=== PATIENT | male | born 1980 | race Caucasian/White ===

== ENCOUNTER 2018-09-05 14:00 | Emergency (ER) | payer OTHER ==
[~2018-09-05] VITALS: Ht 177.8 cm; Wt 95.5 kg
[2018-09-05 14:21] VITALS: BP 162/108
[2018-09-05] MEDS ORDERED: LIDO700A32 TD (15:10)
== END 2018-09-05 15:25 | disposition home or self-care (01) ==
LOC: ER 14:00
DX: R07.81 Pleurodynia (principal); F17.200 Nicotine dependence, unspecified, uncomplicated; F12.90 Cannabis use, unspecified, uncomplicated
CPT/HCPCS: 71046; 99283

== ENCOUNTER 2019-02-02 18:53 | Emergency (ER) | payer MEDICAID, OTHER ==
[~2019-02-02] VITALS: Ht 177.8 cm; Wt 90.9 kg
[~2019-02-02 18:53] MED LIST: LIDO700A32 TD
[2019-02-02 19:00] VITALS: BP 126/79
[2019-02-02] MEDS ORDERED: LIDOcaine 1% w/epiNEPHrine 1:200,000 30ml vial IM ONE (19:55)
[2019-02-02] MEDS ORDERED: TETanus/Pertussis (Acell)/Diphther VAC/PF (Tdap-Adult) 0.5ml syringe IM ONE (19:55)
[2019-02-02] MEDS ORDERED: ketorolac tromethamine 15mg/ml inj. IM ONE (19:55)
--- NOTE | 2019-02-02 20:01 | NUR ---
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
--- NOTE | 2019-02-02 20:11 | NUR ---
[facility] [place] calls with contact number # [phone]. [place] reports that there is no need for follow up by [place]
[2019-02-02] MEDS ORDERED: CEPH-572 PO (20:43)
[2019-02-02] MEDS ORDERED: SULF1TAB49 PO (20:43)
[2019-02-02] MEDS ORDERED: HYDR-3965 PO (20:44)
== END 2019-02-02 20:54 | disposition home or self-care (01) ==
LOC: ER 18:54
DX: S71.102A Unspecified open wound, left thigh, initial encounter (principal); L08.89 Other specified local infections of the skin and subcutaneous tissue; F12.90 Cannabis use, unspecified, uncomplicated; W34.09XA Accidental discharge from other specified firearms, initial encounter; Y93.89 Activity, other specified; Y92.89 Other specified places as the place of occurrence of the external cause; Y99.9 Unspecified external cause status
CPT/HCPCS: 73130; 73552; 90471; 90715; 96372; 99283; J1885; J3490; 99284

== ENCOUNTER 2019-02-12 12:16 | Emergency (ER) | payer MEDICAID, OTHER ==
[~2019-02-12] VITALS: Ht 177.8 cm; Wt 90.9 kg
[2019-02-12 12:22] VITALS: BP 121/73
[2019-02-12] MEDS ORDERED: ketorolac tromethamine 15mg/ml inj. IM ONE (13:05)
[2019-02-12] MEDS ORDERED: IBUP-1985 PO (13:51)
== END 2019-02-12 13:59 | disposition home or self-care (01) ==
LOC: ER 12:17
DX: M76.9 Unspecified enthesopathy, lower limb, excluding foot (principal); M25.561 Pain in right knee; F12.90 Cannabis use, unspecified, uncomplicated; Z79.899 Other long term (current) drug therapy; Z79.1 Long term (current) use of non-steroidal anti-inflammatories (NSAID)
CPT/HCPCS: 29505; 73564; 96372; 99283; J1885

== ENCOUNTER 2021-05-09 17:49 | Emergency (ER) | payer MEDICAID ==
[~2021-05-09] VITALS: Ht 172.7 cm; Wt 86.4 kg
[~2021-05-09 17:49] MED LIST changes: +IBUP-1985 PO
[2021-05-09 18:04] VITALS: BP 128/76
[2021-05-09] MEDS ORDERED: LIDOcaine 1% W/epiNEPHrine 1:200,000 10ml vial IJ ONE (18:10)
[2021-05-09] MEDS ORDERED: bacitracin 15gm ointment TP ONE (18:10)
[2021-05-09] MEDS ORDERED: TETanus/Pertussis (Acell)/Diphther VAC/PF (Tdap-Adult) 0.5ml syringe IMVAC ONE (18:10)
== END 2021-05-09 18:56 | disposition home or self-care (01) ==
LOC: ER 17:50
DX: S61.412A Laceration without foreign body of left hand, initial encounter (principal); W45.8XXA Other foreign body or object entering through skin, initial encounter; Y93.89 Activity, other specified; Y92.89 Other specified places as the place of occurrence of the external cause; Y99.8 Other external cause status
CPT/HCPCS: 12001; 90471; 90715; 99283

== ENCOUNTER 2021-05-11 22:55 | Emergency (ER) | payer MEDICAID ==
[~2021-05-11] VITALS: Ht 172.7 cm; Wt 90.9 kg
[2021-05-11 23:12] VITALS: BP 149/104
--- NOTE | 2021-05-11 23:14 | NUR ---
pt has no c/o anything
== END 2021-05-11 23:17 ==
LOC: ER 22:56
DX: Z02.89 Encounter for other administrative examinations (principal); S61.412D Laceration without foreign body of left hand, subsequent encounter; F12.90 Cannabis use, unspecified, uncomplicated; Z79.899 Other long term (current) drug therapy; X58.XXXD Exposure to other specified factors, subsequent encounter
CPT/HCPCS: 99283